=== PATIENT | female | born 1945 | race American Indian/Alaskan Native ===

== ENCOUNTER 2017-04-05 14:34 | Emergency (ER) | payer MEDICARE, OTHER ==
[2017-04-05] MEDS ORDERED: Sodium Chloride 0.9% 1,000 ML IV ONE (14:49)
[2017-04-05] MEDS ORDERED: ceFAZolin 2 GM in Premix Bag 1 BAG IV ONE (14:49)
[2017-04-05] MEDS ORDERED: Ketorolac 30 MG/ML SDV IVPUSH ONE (14:49)
[2017-04-05] MEDS ORDERED: Ondansetron 4 MG/2 ML SDV IVPUSH ONE (14:49)
--- NOTE | 2017-04-05 15:19 | CR ---
EXAMINATION: Right elbow HISTORY: Cellulitis COMPARISON: None TECHNIQUE: 2 views FINDINGS/IMPRESSION: Moderate soft tissue edema is noted adjacent to the right elbow most prominent overlying the olecranon. There is no acute osseous abnormality, dislocation, or fracture. Mild join t space narrowing along the medial aspect of the elbow joint space.
[2017-04-05 15:59] LABS: CHLORIDE,CL 103 mmol/L (98-110); SODIUM,NA 130 mmol/L (136-146)
--- NOTE | 2017-04-05 16:34 | EDM.PDOC ---
ED HPI GENERAL MEDICAL PROBLEM - General Chief Complaint: Upper Extremity Injury/Pain Stated Complaint: RT ELBOW SOLLOWEN Time Seen by Provider: 04/05/17 15:50 Source of Information: Reports: Patient History Limitations: Reports: No Limitations - History of Present Illness INITIAL COMMENTS - FREE TEXT/NARRATIVE: History of present illness: [71-year-old female comes in complaining of pain to her to her right elbow. Patient indicates she struck it on the ground in a fall and has subsequently had pain with that every since. There is no deformity of the elbow but there is erythema and cellulitic changes of the skin around the elbow with an obvious area of abrasion right at the tip] Review of systems: As per history of present illness and below otherwise all systems reviewed and negative. Past medical history: As per history of present illness and as reviewed below otherwise noncontributory. Surgical history: As per history of present illness and as reviewed below otherwise noncontributory. Social history: No reported history of drug or alcohol abuse. Family history: As per history of present illness and as reviewed below otherwise noncontributory. Physical exam: HEENT: Atraumatic, normocephalic, pupils reactive, negative for conjunctival pallor or scleral icterus, mucous membranes moist, throat clear, neck supple, nontender, trachea midline. Lungs: Clear to auscultation, breath sounds equal bilaterally, chest nontender. Heart: S1S2, regular, negative for clicks, rubs, or JVD. Abdomen: Soft, nondistended, nontender. Negative for masses or hepatosplenomegaly. Negative for costovertebral tenderness. Pelvis: Stable nontender. Genitourinary: Deferred. Rectal: Deferred. Extremities: Atraumatic, negative for cords or calf pain. Neurovascular unremarkable. Neuro: Awake, alert, oriented. Cranial nerves II through XII unremarkable. Cerebellum unremarkable. Motor and sensory unremarkable throughout. Exam nonfocal. Skin: Cellulitic changes of right elbow with a small abrasion at the end of the elbow which could be entry point for bacteria Diagnostics: [X-ray, CBC, CMP] Therapeutics: [IV fluid, Rocephin 2 g] Impression: [Cellulitis] Plan: [Antibiotics] Definitive disposition and diagnosis as appropriate pending reevaluation and review of above. right elbow Pain Score (Numeric/FACES): 7 - Related Data Allergies Allergy/AdvReac Type Severity Reaction Status Date / Time codeine Allergy Difficulty Verified 04/05/17 14:41 Breathing Home Meds: Home Meds Benzonatate [Tessalon Perles] 100 mg PO TID 04/05/17 [History] Cephalexin [Keflex] 500 mg PO QID #40 capsule 04/05/17 [Rx] Cholecalciferol (Vitamin D3) [Vitamin D3] 1,000 unit PO BID 04/05/17 [History] Gabapentin [Gralise] 600 mg PO TID 04/05/17 [History] Lisinopril 20 mg PO DAILY 04/05/17 [History] Lovastatin [Altoprev] 20 mg PO BEDTIME 04/05/17 [History] Nitrofurantoin Macrocrystal [Macrodantin] 100 mg PO BEDTIME 04/05/17 [History] Omeprazole 20 mg PO DAILY 04/05/17 [History] Oxybutynin Chloride [Ditropan Xl] 10 mg PO DAILY 04/05/17 [History] Pilocarpine HCl [Salagen] 5 mg PO TID 04/05/17 [History] Vit #108/Iron/FA [ One Tablet] 04/05/17 [History] Venlafaxine [Effexor] 25 mg PO BID 04/05/17 [History] traZODone 50 mg PO BEDTIME 04/05/17 [History] Past Medical History - Past Health History Medical/Surgical History: Denies Medical/Surgical History Cardiovascular History: Reports: High Cholesterol, Hypertension [employer] History: Reports: Musculoskeletal History: Reports: Back Pain, Chronic - Past Surgical History GI Surgical History: Reports: Cholecystectomy Social & Family History - Family History Family Medical History: Noncontributory - Tobacco Use Smoking Status *Q: Never Smoker - Caffeine Use Caffeine Use: Reports: Coffee - Recreational Drug Use Recreational Drug Use: No Review of Systems - Review of Systems Review Of Systems: See Below (History of present illness) ED EXAM, GENERAL - Physical Exam Exam: See Below (See history of present illness) Course - Vital Signs Last Recorded V/S: Last Vital Signs Temp 36.6 C 04/05/17 14:48 Pulse 96 04/05/17 14:48 Resp 18 04/05/17 14:48 BP 102/81 04/05/17 14:48 Pulse Ox 96 04/05/17 14:48 - Orders/Labs/Meds Labs: Laboratory Tests 04/05/17 04/05/17 Range/Units 15:17 15:17 WBC 11.87 H (4.0-11.0) K/uL RBC 4.06 L (4.30-5.90) M/uL Hgb 13.4 (12.0-16.0) g/dL Hct 38.6 (36.0-46.0) % MCV 95.1 (80.0-98.0) fL MCH 33.0 H (27.0-32.0) pg MCHC 34.7 (31.0-37.0) g/dL RDW Std Deviation 51.1 (28.0-62.0) fl RDW Coeff of Agusto 15 (11.0-15.0) % Plt Count 99 L (150-400) K/uL MPV 9.70 (7.40-12.00) fL Neut % (Auto) 92.2 H (48.0-80.0) % Lymph % (Auto) 3.9 L (16.0-40.0) % [place] % (Auto) 1.6 (0.0-15.0) % Eos % (Auto) 2.1 (0.0-7.0) % Baso % (Auto) 0.2 (0.0-1.5) % Neut # (Auto) 11.0 H (1.4-5.7) K/uL Lymph # (Auto) 0.5 L (0.6-2.4) K/uL [place] # (Auto) 0.2 (0.0-0.8) K/uL Eos # (Auto) 0.3 (0.0-0.7) K/uL Baso # (Auto) 0.0 (0.0-0.1) K/uL Nucleated RBC % 0.0 /100WBC Nucleated RBCs # 0 K/uL Sodium 130 L (136-146) mmol/L Potassium 3.7 (3.5-5.1) mmol/L Chloride 103 (98-110) mmol/L Carbon Dioxide 20 L (21-31) mmol/L BUN 17 (6.0-23.0) mg/dL Creatinine 0.7 (0.6-1.5) mg/dL Est Cr Clr Drug Dosing TNP Estimated GFR (MDRD) > 60.0 ml/min Glucose 88 (60-110) mg/dL Calcium 9.9 (8.8-10.8) mg/dL Total Bilirubin 0.6 (0.1-1.5) mg/dL AST 37 (5-40) IU/L ALT 40 (8-54) IU/L Alkaline Phosphatase 69 (40-150) Total Protein 6.4 (6.0-8.0) g/dL Albumin 3.2 L (3.4-4.8) g/dL Globulin 3.2 (2.0-3.5) g/dL Albumin/Globulin Ratio 1.0 L (1.3-2.8) Meds: Medications Discontinued Medications Generic Name Dose Route Start Last Admin Trade Name Freq PRN Reason Stop Dose Admin Sodium Chloride 1,000 mls @ 999 mls/hr 04/05/17 14:49 04/05/17 15:22 Normal Saline IV 04/05/17 15:49 999 mls/hr STAT ONE Administration Cefazolin Sodium/Dextrose 2 gm 50 mls @ 100 mls/hr 04/05/17 14:49 04/05/17 15 :31 / Premix IV 04/05/17 15:18 100 mls/hr ONETIME ONE Administration Ketorolac Tromethamine 30 mg 04/05/17 14:49 04/05/17 15:19 Toradol IVPUSH 04/05/17 14:50 30 mg ONETIME ONE Administration Ondansetron HCl 4 mg 04/05/17 14:49 04/05/17 15:22 Zofran IVPUSH 04/05/17 14:50 4 mg ONETIME ONE Administration Departure - Departure Time of Disposition: 16:33 Disposition: Home, Self-Care 01 Condition: Good Clinical Impression: Cellulitis - Discharge Information Prescriptions: Cephalexin [Keflex] 500 mg PO QID #40 capsule Forms: ED Department Discharge Additional Instructions: The following information is given to patients seen in the emergency department who are being discharged to home. This information is to outline your options for follow-up care. We provide all patients seen in our emergency department with a follow-up referral. The need for follow-up, as well as the timing and circumstances, are variable depending upon the specifics of your emergency department visit. If you don't have a primary care physician on staff, we will provide you with a referral. We always advise you to contact your personal physician following an emergency department visit to inform them of the circumstance of the visit and for follow-up with them and/or the need for any referrals to a consulting specialist. The emergency department will also refer you to a specialist when appropriate. This referral assures that you have the opportunity for follow-up care with a specialist. All of these measure are taken in an effort to provide you with optimal care, which includes your follow-up. Under all circumstances we always encourage you to contact your private physician who remains a resource for coordinating your care. When calling for follow-up care, please make the office aware that this follow-up is from your recent emergency room visit. If for any reason you are refused follow-up, please contact the [facility] Department at and asked to speak to the emergency department charge nurse. Take the medication as directed Follow-up with PCP 1-2 days Return to ED as needed as discussed
[2017-04-05 17:11] VITALS: BP 123/95
== END 2017-04-05 17:09 | disposition home or self-care (01) ==
LOC: MW.ED 14:34
DX: L03.113 Cellulitis of right upper limb (principal); E78.00 Pure hypercholesterolemia, unspecified; I10 Essential (primary) hypertension; Z90.49 Acquired absence of other specified parts of digestive tract; Z88.5 Allergy status to narcotic agent; Z79.899 Other long term (current) drug therapy; S50.311A Abrasion of right elbow, initial encounter; W01.10XA Fall on same level from slipping, tripping and stumbling with subsequent striking against unspecified object, initial encounter
CPT/HCPCS: 73070; 80053; 85025; 96361; 96365; 96375; 99283; J0690; J1885; J2405; J7040; 99284